=== PATIENT | female | born 1965 | race Caucasian/White ===

== ENCOUNTER 2022-09-08 10:36 | Outpatient (CLI) | payer MEDICARE, OTHER, SELFPAY ==
--- NOTE | ~2022-09-08 | XR_ITS ---
XR_CERV2-3V_CR DATE: 09/08/2022 11:02 INDICATION: Tingling in the hands when looking down. Surgery in June 2022. TECHNIQUE: AP and lateral views COMPARISON: None FINDINGS: C1 and C2 are normally aligned and the odontoid process is intact. No fracture or dislocati on or locked facet or prevertebral soft tissue swelling. There is moderate degenerative disc disease at C3-4 with very prominent anterior spurring. Status post anterior and interbody spinal fusion at C4-C7 by means of anterior plate and screws and i nterbody fusion at. C4-C6 and separate horizontally oriented plate with screws and interbody spinal f usion at C6-7. IMPRESSION: Status post anterior and interbody surgical spinal fusion at C4-6 and C6-7 Moderately severe degenerative disc disease at C3-4 Reviewed, dictated and finalized at [facility]. Reviewed, dictated and finalized at location [facility]. DIRECTOR OF FINANCE IMPRESSION: Status post anterior and interbody surgical spinal fusion at C4-6 a nd C6-7 Moderately severe degenerative disc disease at C3-4
== END 2022-09-08 10:37 | disposition home or self-care (01) ==
PROVIDERS: Visit Provider Neurological Surgery
DX: R20.0 Anesthesia of skin (principal); Z98.1 Arthrodesis status; M50.321 Other cervical disc degeneration at C4-C5 level
CPT/HCPCS: 72040

== ENCOUNTER 2022-12-16 14:09 | Outpatient (CLI) | payer MEDICARE, OTHER, SELFPAY ==
--- NOTE | ~2022-12-16 | XR_ITS ---
XR_CERV2-3V_CR 12/16/2022 14:38 Indication: Neck pain Procedure: 3 views cervical spine Comparison: 09/08/2022 Findings: There are surgical changes consistent with anterior fusion with interbody disc prosthesis a t C4-7. No prevertebral soft tissue swelling. Lung apices are normal. No acute fracture or traumatic malalignment. There is degenerative disc disease at C3-4. Impression: 1: Moderate cervical spondylosis with anterior cervical fusion and discectomy changes at C4-7. No sig nificant interval change. Reviewed, dictated and finalized at location L. [employer] ENGINEERING MANAGER Impression: 1: Moderate cervical spondylosis with anterior cervical fusion and discectomy c hanges at C4-7. No significant interval change.
== END 2022-12-16 14:10 | disposition home or self-care (01) ==
PROVIDERS: Visit Provider Neurological Surgery
DX: Z98.1 Arthrodesis status (principal); M47.812 Spondylosis without myelopathy or radiculopathy, cervical region
CPT/HCPCS: 72040

== ENCOUNTER 2023-07-06 09:34 | Outpatient (CLI) | payer MEDICARE, SELFPAY ==
--- NOTE | ~2023-07-06 | XR_ITS ---
EXAMINATION: XR_CERV2-3V_CR DATE: 07/06/2023 10:04 INDICATION: Spondylosis without myelopathy or radiculopathy. TECHNIQUE: 3 views of cervical spine were obtained. COMPARISON: Cervical spine radiographs 12/16/2022 FINDINGS: Bone alignment is normal. There are changes of anterior fusion procedure from C4 to C7 with anterior plates and screws and interbody bone graft. There is moderately decreased disc height at C3 -C4. At C3-C4, there is severe bilateral uncovertebral joint osteoarthritis. There is multilevel face t joint osteoarthritis, moderate to severe in lower cervical spine. There is mild central canal steno sis at C3-C4. No prevertebral soft tissue swelling. IMPRESSION: 1. Moderate cervical spondylosis. 2. Anterior fusion procedures from C4 to C7. Reviewed, dictated and finalized at location A.
== END 2023-07-06 09:35 | disposition home or self-care (01) ==
PROVIDERS: Visit Provider Internal Medicine Gastroenterology
DX: M47.812 Spondylosis without myelopathy or radiculopathy, cervical region (principal); Z98.1 Arthrodesis status
CPT/HCPCS: 72040